=== PATIENT | male | born 1970 | race Caucasian/White ===

== ENCOUNTER 2016-05-23 22:45 | Emergency (ER) | payer BC ==
[~2016-05-23] VITALS: Ht 180.3 cm; Wt 92.5 kg
[2016-05-23 22:58] VITALS: Ht 180.3 cm; Wt 92.5 kg
[2016-05-24] MEDS ORDERED: LIDOCAINE/MYLANTA 40 ML BTL PO STA (00:46)
[2016-05-24 01:14] LABS: ADD SCAN DIFF NO
[2016-05-24 01:23] LABS: BASOPHIL # 0.1 10^3/ul (0.0-0.1); BASOPHILS % 1.3 % (0.0-2.0); EOSINOPHILS # 0.3 10^3/ul (0.0-0.5); EOSINOPHILS % 4.8 % (0.0-7.0); HEMATOCRIT 40.5 % (42.0-52.0); LYMPHOCYTES # 2.9 10^3/ul (0.8-2.9); LYMPHOCYTES % 43.1 % (15.0-51.0); MEAN CORPUSCULAR HEMOGLOBIN 31.8 pg (29.0-33.0); MEAN CORPUSCULAR HGB CONC 34.6 g/dl (32.0-37.0); MEAN PLATELET VOLUME 11.2 fl (7.4-10.4); MONOCYTE # 0.5 10^3/ul (0.3-0.9); MONOCYTES % 7.8 % (0.0-11.0); NEUTROPHIL # 2.9 10^3/ul (1.6-7.5); NEUTROPHILS % 42.9 % (39.0-77.0); PLATELET COUNT 170 10^3/UL (140-415); RED CELL DISTRIBUTION WIDTH 12.1 % (11.5-14.5); WHITE BLOOD COUNT 6.7 10^3/ul (4.8-10.8)
[2016-05-24 01:27] LABS: ADD UMIC NO; URINE BILIRUBIN (Dip) NEGATIVE (NEGATIVE); URINE BLOOD (Dip) NEGATIVE (NEGATIVE); URINE COLOR LT. YELLOW (YELLOW); URINE GLUCOSE (Dip) NEGATIVE (NEGATIVE); URINE KETONES (Dip) NEGATIVE (NEGATIVE); URINE LEUKOCYTE ESTERASE (Dip) NEGATIVE (NEGATIVE); URINE NITRITE (Dip) NEGATIVE (NEGATIVE); URINE TOTAL PROTEIN (Dip) NEGATIVE (NEGATIVE); URINE UROBILINOGEN (Dip) 0.2 E.U./dL (0.1-1.0)
[2016-05-24 01:33] LABS: ALBUMIN 4.4 g/dl (3.3-4.9); POTASSIUM 4.2 mmol/L (3.5-5.1)
[2016-05-24 01:35] LABS: CREATININE 0.85 mg/dl (0.61-1.24)
[2016-05-24 01:36] LABS: ALBUMIN/GLOBULIN RATIO 1.62; CALCIUM 9.2 mg/dl (8.4-10.2); TOTAL PROTEIN 7.1 g/dl (6.1-8.1)
[2016-05-24 01:39] LABS: BILIRUBIN,INDIRECT 0.6 mg/dl (0-1.1); BILIRUBIN,TOTAL 0.6 mg/dl (0.2-1.3)
--- NOTE | 2016-05-24 02:17 | RADRPT ---
PROCEDURE: XR Abdomen. CLINICAL INDICATION: Abdominal pain TECHNIQUE: Supine AP views of the abdomen. COMPARISON: None. FINDINGS: There is a ltyqbkee-da-bqndr volume of stool throughout the colon. There are no dilated loops of sma ll bowel to suggest a bowel obstruction. No abnormal calcifications are identified. IMPRESSION: 1. Nonobstructive bowel gas pattern. 2. Winoytlq-wr-pntiu volume of stool throughout the colon. RPTAT: HTAR .Rubni Rosario MD, MD Date Time Electronically viewed and signed by .Rubin Rosario MD, on 05/24/2016 02:17 .R/
[2016-05-24] MEDS ORDERED: DOCU-144 PO (02:31)
[2016-05-24] MEDS ORDERED: OMEP20CA16 PO (02:31)
--- NOTE | 2016-05-24 02:40 | ERD ---
ER Documentation Chief Complaint Date/Time DATE: 05/24/16 TIME: 02:34 Chief Complaint AP X1 hour. Nauseated at this time HPI 45-year-old male presents with chief complaint of intermittent generalized abdominal pain 2 hours. Associated symptoms include nausea. Denies vomiting, diarrhea, fever, dysuria and flank pain. Denies history of abdominal surgeries. Currently rates his pain a 3 out of 10 in intensity. Denies taking any medication for pain relief. ROS All systems reviewed and are negative except as per history of present illness. Medications Home Meds Active Scripts Omeprazole* (Omeprazole*) 20 Mg Capsule.dr, 20 MG PO BID, #20 Prov:Marilee Kenyon PA-C 05/24/16 Docusate Sodium* (Colace*) 100 Mg Capsule, 100 MG PO TID, #30 CAP Prov:Marilee Kenyon PA-C 05/24/16 Allergies Allergies: Coded Allergies: No Known Allergy (Unverified , 01/08/11) PMhx/Soc Medical and Surgical Hx: pt denies Medical Hx, pt denies Surgical Hx History of Surgery: No Anesthesia Reaction: No Hx Neurological Disorder: No Hx Respiratory Disorders: No Hx Cardiac Disorders: No Hx Psychiatric Problems: No Hx Miscellaneous Medical Probl: No Hx Alcohol Use: No Hx Substance Use: No Hx Tobacco Use: No Smoking Status: Never smoker Physical Exam Vitals Vital Signs Date Time Temp Pulse Resp B/P Pulse Ox O2 Delivery O2 Flow Rate FiO2 05/23/16 22:58 97.6 56 18 118/65 98 Physical Exam GENERAL: Non-toxic. No apparent signs of distress. LUNGS: Clear to auscultation. No accessory muscle use. No wheezing, no crackles. No signs or symptoms of respiratory distress. HEART: Regular rate and rhythm. No murmurs, clicks, rubs or gallops. ABDOMEN: Soft and nondistended. Mild tenderness to palpation of the epigastric region. Bowel sounds positive. No rebound or guarding. No gross peritoneal signs. No Siddiqui or McBurney point tenderness. No gross masses. BACK: No midline tenderness, no costovertebral tenderness. NEURO: The patient moves all 4 extremities with 5/5 strength. Cranial nerves are grossly intact. Normal mental status for age. Good muscle tone. SKIN: There is no apparent rash, petechiae, erythema or swelling. Good skin turgor. Result Diagram: 3/19/17 0100 3/19/17 0100 Results 24 hrs Laboratory Tests Test 05/24/16 01:00 Alanine Aminotransferase (ALT/SGPT) 102IU/L Albumin 4.4g/dl Albumin/Globulin Ratio 1.62 Alkaline Phosphatase 49IU/L Anion Gap 15 Aspartate Amino Transf (AST/SGOT) 42IU/L Basophils # 0.110^3/ul Basophils % 1.3% Blood Urea Nitrogen 16mg/dl Calcium Level 9.2mg/dl Carbon Dioxide Level 29mmol/L Chloride Level 101mmol/L Creatinine 0.85mg/dl Direct Bilirubin 0.00mg/dl Eosinophils # 0.310^3/ul Eosinophils % 4.8% Globulin 2.70g/dl Glucose Level 97mg/dl Hematocrit 40.5% Hemoglobin 14.0g/dl Indirect Bilirubin 0.6mg/dl Lipase 94U/L Lymphocytes # 2.910^3/ul Lymphocytes % 43.1% Mean Corpuscular Hemoglobin 31.8pg Mean Corpuscular Hemoglobin Concent 34.6g/dl Mean Corpuscular Volume 92.0fl Mean Platelet Volume 11.2fl Monocytes # 0.510^3/ul Monocytes % 7.8% Neutrophils # 2.910^3/ul Neutrophils % 42.9% Nucleated Red Blood Cells # 0.010^3/ul Nucleated Red Blood Cells % 0.0/100WBC Platelet Count 32688^3/UL Potassium Level 4.2mmol/L Red Blood Count 4.4010^6/ul Red Cell Distribution Width 12.1% Sodium Level 141mmol/L Total Bilirubin 0.6mg/dl Total Protein 7.1g/dl Urine Bilirubin NEGATIVE Urine Clarity CLEAR Urine Color LT. YELLOW Urine Glucose NEGATIVE% Urine Hemoglobin NEGATIVE Urine Ketones NEGATIVE Urine Leukocyte Esterase NEGATIVE Urine Nitrite NEGATIVE Urine Specific [place] >=1.030 Urine Total Protein NEGATIVE Urine Urobilinogen 0.2 E.U./dL Urine pH 6.0 White Blood Count 6.710^3/ul Current Medications Medications (Trade) Dose Ordered Sig/Lester Route PRN Reason Start Time Stop Time Status Last Admin Dose Admin Miscellaneous Medication (Gi Cocktail (2)) 40 ml ONCE STAT PO 05/24/16 00:46 05/24/16 00:48 DC 05/24/16 00:56 Procedures/MDM Patient presented with intermittent generalized abdominal pain, however on exam he had mild tenderness to palpation of the epigastric area. Due to this I gave him an GI cocktail in the ER. In addition I ordered basic lab work and an abdominal x-ray due to patient's complaint of bloating to rule out bowel obstruction. Awaiting results prior further management. CBC: No leukocytosis or anemia CMP: No severe electrolyte imbalance, kidney function normal, LFTs within normal limits UA: No leukocyte esterase or nitrite, UTI and pyelonephritis unlikely KUB: Nonobstructive bowel gas pattern, moderate to large volume of stool throughout the colon Reassess patient, states that he is feeling better after GI cocktail. I explained that workup revealed no signs of acute infection or bowel obstruction. Symptoms are likely due to dyspepsia or constipation. As shown on x-ray and based on improvement after GI cocktail. Provided patient prescription of Colace and omeprazole. At this time low suspicion for bowel obstruction, cholecystitis, sinusitis, diverticulitis, and bowel perforation. Patient is here for discharge and outpatient management. Advised to follow-up with PCP in 1-2 days. Departure Diagnosis: Primary Impression: Abdominal pain Abdominal location: generalized Qualified Code: R10.84 - Generalized abdominal pain Additional Impression: Constipation Constipation type: unspecified constipation type Qualified Code: K59.00 - Constipation, unspecified constipation type Condition: Good Patient Instructions: Constipation (Adult), Epigastric Pain (Uncertain Cause) Additional Instructions: Llame al doctor MAANA y leandro rashad DANIEL PARA DENTRO DE 1-2 NAILS.Dgale a la secretaria que nosotros le instruimos hacer esta daniel.Avise o llame si maravilla condicin se empeora antes de la daniel. Regresa aqui si peor o no mejor. Marilee Kenyon PA-C May 24, 2016 02:39
[2016-05-24 02:54] VITALS: BP 120/79; PULSE 65; RESP 16; TEMP 98
== END 2016-05-24 02:55 | disposition home or self-care (01) ==
LOC: FTE 22:45
DX: R10.84 Generalized abdominal pain (principal); K59.00 Constipation, unspecified; R11.0 Nausea
CPT/HCPCS: 36415; 74000; 80053; 81003; 83690; 85025

== ENCOUNTER 2016-06-13 11:56 | Emergency (ER) | payer BC ==
[~2016-06-13] VITALS: Ht 180.3 cm; Wt 90.5 kg
[~2016-06-13 11:56] MED LIST: DOCU-144 PO; OMEP20CA16 PO
[2016-06-13 12:17] VITALS: Ht 180.3 cm; Wt 90.5 kg
[2016-06-13 14:17] LABS: URINE BLOOD (Dip) POC Negative (NEGATIVE)
--- NOTE | 2016-06-13 14:26 | RADRPT ---
PROCEDURE: XR Chest AP portable CLINICAL INDICATION: Short of breath TECHNIQUE: An AP portable radiograph of the chest was submitted. COMPARISON: None. FINDINGS: Support Hardware: None Cardiovascular: The cardiovascular silhouette appears unremarkable except for mild aortic tortuosity . Lung Patricio: Minimal pleural parenchymal scarring is seen at the pulmonary apices. There is vascula r crowding at the medial right lung base. No alveolar infiltrate is evident. Pleural Spaces: No pneumothorax or pleural effusion is identified. Osseous Structures: The osseous structures appear intact. Soft Tissues: The soft tissues appear unremarkable. IMPRESSION: 1. Aortic tortuosity 2. Slight pleural parenchymal scarring at the pulmonary apices with crowding of the pulmonary vascu lature at the medial right lung base. Physician Malick Date Time Electronically viewed and signed by Physician Malick on 06/13/2016 14:26 /
[2016-06-13] MEDS ORDERED: HYDROCODONE/APAP (5/325) TAB PO ONE (14:30)
[2016-06-13] MEDS ORDERED: ONDANSETRON (ODT) 4 MG TAB ODT STA (15:14)
--- NOTE | 2016-06-13 15:14 | ERD ---
ER Documentation Chief Complaint Date/Time DATE: 06/13/16 TIME: 15:12 Chief Complaint Pt presents with body ache, SOB, and VENEGAS aince th morning. HPI This is a 45-year-old male who presents to the emergency department today complaining of body aches, shortness of breath, headache, feeling "hot", back pain and muscle tightness and some nausea and vomiting. States he has "kidney pain". States that sometimes his right kidney hurts and sometimes his left kidney hurts" he has not taken any medication for the pain. Denies any fevers or chills or cough ROS All systems reviewed and are negative except as per history of present illness. Medications Home Meds Active Scripts Ondansetron Hcl* (Zofran*) 4 Mg Tablet, 4 MG PO Q6H for NAUSEA AND/OR VOMITING, #30 TAB Prov:WILIAM GILBERT PA-C 06/13/16 Acetaminophen* (Tylophen*) 500 Mg Capsule, 1 CAP PO Q6H Y for PAIN AND OR ELEVATED TEMP, #30 CAP Prov:WILIAM GILBERT PA-C 06/13/16 Ibuprofen* (Motrin*) 600 Mg Tab, 600 MG PO Q6, #30 TAB Prov:WILIAM GILBERT PA-C 06/13/16 Hydrocodone/Acetaminophen (Derwent 5-325 Tablet) 1 Each Tablet, 1 TAB PO Q6H Y for PAIN, #12 TAB Prov:WILIAM GILBERT PA-C 06/13/16 Omeprazole* (Omeprazole*) 20 Mg Capsule.dr, 20 MG PO BID, #20 Prov:Marilee Kenyon PA-C 05/24/16 Docusate Sodium* (Colace*) 100 Mg Capsule, 100 MG PO TID, #30 CAP Prov:Marilee Kenyon PA-C 05/24/16 Allergies Allergies: Coded Allergies: No Known Allergy (Unverified , 01/08/11) PMhx/Soc History of Surgery: No Anesthesia Reaction: No Hx Neurological Disorder: No Hx Respiratory Disorders: No Hx Cardiac Disorders: No Hx Psychiatric Problems: No Hx Miscellaneous Medical Probl: No Hx Alcohol Use: No Hx Substance Use: No Hx Tobacco Use: No Smoking Status: Never smoker Physical Exam Vitals Vital Signs Date Time Temp Pulse Resp B/P Pulse Ox O2 Delivery O2 Flow Rate FiO2 06/13/16 12:17 98.3 78 18 132/71 98 Physical Exam Const: No acute distress Head: Atraumatic Eyes: Normal Conjunctiva ENT: Ears TMs normal. Nose no drainage. Throat no erythema no exudate. Neck: Full range of motion..~ No meningismus. Resp: Clear to auscultation bilaterally. No absent breath sounds. No wheezing. Cardio: Regular rate and rhythm, no murmurs Abd: Soft, non tender, non distended. Normal bowel sounds Skin: No petechiae or rashes Back: No midline tenderness bilateral paraspinal tenderness. No CVA tenderness. Ext: No cyanosis, or edema Neur: Awake and alert Psych: Normal Mood and Affect Results 24 hrs Laboratory Tests Test 06/13/16 14:17 Bedside Urine pH (LAB) 5.5 Bedside Urine Protein (LAB) Trace Bedside Urine Glucose (UA) Negative Bedside Urine Ketones (LAB) Negative Bedside Urine Blood Negative Bedside Urine Nitrite (LAB) Negative Bedside Urine Leukocyte Esterase (L Negative Current Medications Medications (Trade) Dose Ordered Sig/Lester Route PRN Reason Start Time Stop Time Status Last Admin Dose Admin Acetaminophen/ Hydrocodone Bitart (Derwent (5/325)) 1 tab ONCE ONCE PO 06/13/16 14:30 06/13/16 14:31 DC 06/13/16 14:14 Ondansetron HCl (Zofran Odt) 4 mg ONCE STAT ODT 06/13/16 15:14 06/13/16 15:15 DC 06/13/16 15:29 DIAGNOSTIC IMAGING REPORT Patient: GINA PARRA : 1970 Age: 45 Sex: M MR #: [id number] DOS: 06/13/16 0000 Ordering MD: WILIAM GILBERT PA-C Location: [facility] Room/Bed: PROCEDURE: XR Chest AP portable CLINICAL INDICATION: Short of breath TECHNIQUE: An AP portable radiograph of the chest was submitted. COMPARISON: None. FINDINGS: Support Hardware: None Cardiovascular: The cardiovascular silhouette appears unremarkable except for mild aortic tortuosity. Lung Patricio: Minimal pleural parenchymal scarring is seen at the pulmonary apices. There is vascular crowding at the medial right lung base. No alveolar infiltrate is evident. Pleural Spaces: No pneumothorax or pleural effusion is identified. Osseous Structures: The osseous structures appear intact. Soft Tissues: The soft tissues appear unremarkable. IMPRESSION: 1. Aortic tortuosity 2. Slight pleural parenchymal scarring at the pulmonary apices with crowding of the pulmonary vasculature at the medial right lung base. Physician Malick Date Time Electronically viewed and signed by Physician Malick on 06/13/2016 14:26 RH/ CC: WILIAM GILBERT PA-C/MDM Is a 45-year-old male who presents to the emergency department today with multiple complaints. Patient has a history of kidney stones in the past and he was concerned about that as he states "I have kidney pain".. I did obtain a UA as well as a chest x-ray given his complaint of shortness of breath. UA is negative for infection. Negative for hematuria. Patient is afebrile and otherwise well-appearing. He has no CVA tenderness. Low suspicion for pyelonephritis or nephrolithiasis. Chest x-ray shows aortic tortuosity. There is slight pleural parenchymal scarring at the pulmonary apices with crowding of the pulmonary vasculature at the medial right lung base. There is no infiltrate evident. There is no pneumothorax or pleural effusion. Given patient's multiple complaints and complaints of body aches as well as headache his symptoms appear most consistent with influenza-like symptoms at this time. His vitals are stable. He is not tachycardic and his oxygen saturation is 98%. Low suspicion for PE. I do not feel that laboratory work is necessary at this time. Patient did not have any abdominal pain on physical exam and have low suspicion for acute surgical abdomen. Patient was given Derwent and Zofran here in the emergency department. Given a prescription for Derwent, Motrin, Zofran and Tylenol. Discussed the x-ray findings with Dr. Martinez and he is in agreement with the plan. At this time the patient is stable for discharge and outpatient management. Patient should follow up with their PCP in the next 1-2 days. They may return to the emergency department sooner for any persistent or worsening of symptoms. Patient understood and agreed with the plan. Departure Diagnosis: Primary Impression: Multiple complaints Condition: WILIAM Hager PA-C Jun 13, 2016 15:14
[2016-06-13] MEDS ORDERED: IBUP-1542 PO (15:27)
[2016-06-13] MEDS ORDERED: HYDR-906 PO (15:27)
[2016-06-13] MEDS ORDERED: ACET500C5 PO (15:28)
[2016-06-13] MEDS ORDERED: ONDA4TAB8 PO (15:30)
[2016-06-13 15:41] VITALS: BP 129/68; PULSE 73; RESP 18; TEMP 98.8
== END 2016-06-13 15:44 | disposition home or self-care (01) ==
LOC: FTE 11:56
DX: R06.02 Shortness of breath (principal); R51 Headache; M54.9 Dorsalgia, unspecified; R11.2 Nausea with vomiting, unspecified
CPT/HCPCS: 71010; 81003